=== PATIENT | female | born 1995 | race Hispanic/Latino ===

== ENCOUNTER 2021-03-31 09:17 | Observation (INO) | payer OTHER, MEDICAID ==
[~2021-03-31] VITALS: Ht 157.5 cm; Wt 94.3 kg
[2021-03-31 09:18] VITALS: BP 114/77
[2021-03-31 09:51] LABS: APPEARANCE,URINE Cloudy (CLEAR); BILIRUBIN,URINE Negative (NEGATIVE); COLOR,URINE Yellow (YELLOW); GLUCOSE, URINE (UA) Negative (NEGATIVE); KETONES,URINE Negative (NEGATIVE); LEUKOCYTE ESTERASE ,URINE Large (NEGATIVE); NITRATE,URINE Negative (NEGATIVE); OCCULT BLOOD,URINE Negative (NEGATIVE); PH,URINE 7.5 (5.0-8.0); PROTEIN,URINE Negative (NEGATIVE)
[2021-03-31 10:46] LABS: BACTERIA,URINE Moderate /HPF (None Seen); RBC,URINE 0-1 /HPF (0-1); SQUAMOUS EPITHELIAL CELL,UR Moderate /HPF (0-2)
== END 2021-03-31 10:52 | disposition home or self-care (01) ==
LOC: EDH 09:17 → LDH 09:18
PROVIDERS: ADMIT Obstetrics & Gynecology; ATTEND Obstetrics & Gynecology
DX: O36.8130 Decreased fetal movements, third trimester, not applicable or unspecified (principal); Z3A.30 30 weeks gestation of pregnancy; Z79.899 Other long term (current) drug therapy
CPT/HCPCS: 59025; 81001; 87088; G0378; G0379

== ENCOUNTER 2021-06-05 05:09 | Inpatient (IN) | payer OTHER, MEDICAID ==
[~2021-06-05] VITALS: Ht 157.5 cm; Wt 99.3 kg
[2021-06-05] MEDS ORDERED: OXYTOCIN-LR 20 UNITS/1000 ML 1,000 ML IV SCH (05:30)
[2021-06-05] MEDS ORDERED: MEPERIDINE-PF 50 MG/ML SYG IVP PRN (05:30)
[2021-06-05] MEDS ORDERED: LACTATED RINGERS 1000ML 1,000 ML IV PRN (05:30)
[2021-06-05] MEDS ORDERED: LACTATED RINGERS 500 ML 500 ML IV PRN (05:30)
[2021-06-05] MEDS ORDERED: ROPIVACAINE 0.2% 100ML VIAL 100 ML EP PRN (05:30)
[2021-06-05] MEDS ORDERED: PROMETHAZINE HCL 25 MG/ML 1ML AMPULE IM PRN (05:30)
[2021-06-05] MEDS ORDERED: EPHEDRINE SULFATE 50 MG/ML AMPULE IVP PRN (05:30)
[2021-06-05] MEDS ORDERED: NALOXONE HCL 0.4 MG/1 ML ML IV PRN (05:30)
[2021-06-05 06:00] LABS: APPEARANCE,URINE Clear (CLEAR); BILIRUBIN,URINE Negative (NEGATIVE); COLOR,URINE Yellow (YELLOW); GLUCOSE, URINE (UA) Negative (NEGATIVE); KETONES,URINE Negative (NEGATIVE); LEUKOCYTE ESTERASE ,URINE Moderate (NEGATIVE); NITRATE,URINE Negative (NEGATIVE); OCCULT BLOOD,URINE Negative (NEGATIVE); PH,URINE 6.5 (5.0-8.0); PROTEIN,URINE Negative (NEGATIVE)
[2021-06-05 06:09] LABS: BACTERIA,URINE Few /HPF (None Seen); MUCUS,URINE Rare LPF (None Seen); RBC,URINE 0-1 /HPF (0-1)
[2021-06-05 06:18] LABS: HEMATOCRIT 30.8 % (36-48); MEAN CORPUSCULAR HEMOGLOBIN 26.4 pg (27.0-33.0); MEAN CORPUSCULAR HGB CONC 32.5 g/dL (32.0-36.0); MEAN CORPUSCULAR VOLUME 81.3 fL (79-99); RED BLOOD CELL COUNT(AUTO) 3.79 MIL/uL (4.00-5.50); RED CELL DISTRIBUTION WIDTH 16.2 % (11.0-15.5); WHITE BLOOD COUNT (AUTO) 8.1 K/uL (4.8-10.8)
[2021-06-05 06:23] VITALS: BP 132/79
[2021-06-05] MEDS ORDERED: FERR-82 PO (06:29)
[2021-06-05] MEDS ORDERED: FENTANYL CITRATE PF 50 MCG/1 ML 2ML VIAL ONE (08:52)
[2021-06-05] MEDS ORDERED: LIDOCAINE 2%-EPI 1:200,000 20 ML VIAL IJ ONE (09:21)
[2021-06-05] MEDS ORDERED: MEASLES/MUMPS/RUBELLA VACCINE, LIVE 0.5 ML/VIAL SQ PRN (13:00)
[2021-06-05] MEDS ORDERED: BENZOCAINE/LANOLIN/ALOE VERA 60 ML AEROSOL TP PRN (13:00)
[2021-06-05] MEDS ORDERED: ACETAMINOPHEN WITH CODEINE 1 TAB TAB PO PRN (13:00)
[2021-06-05] MEDS ORDERED: WITCH HAZEL 1 PAD TP PRN (13:00)
[2021-06-05] MEDS ORDERED: LANOLIN 30GM OINTMENT TP PRN (13:00)
[2021-06-05] MEDS ORDERED: ACETAMINOPHEN 325 MG TAB PO PRN (13:00)
[2021-06-05] MEDS ORDERED: DIPH,PERTUSS(ACELL),TET VAC/PF 0.5 ML VIAL IM PRN (13:00)
[2021-06-05] MEDS ORDERED: FERRIC SUBSULFATE ML TP SCH (13:30)
[2021-06-05] MEDS: IBUPROFEN 600 MG TABLET PO PRN ×2 (14:17→19:59)
[2021-06-05 15:07] VITALS: BP 106/72
[2021-06-05 19:51] VITALS: BP 116/81
[2021-06-05] MEDS: DOCUSATE SODIUM 100 MG CAP PO SCH (21:00)
[2021-06-05 23:42] VITALS: BP 119/62
[2021-06-06 03:59] VITALS: BP 98/53
[2021-06-06 06:36] LABS: HEMATOCRIT 30.8 % (36-48); MEAN CORPUSCULAR HEMOGLOBIN 26.2 pg (27.0-33.0); MEAN CORPUSCULAR HGB CONC 31.5 g/dL (32.0-36.0); MEAN CORPUSCULAR VOLUME 83.2 fL (79-99); RED BLOOD CELL COUNT(AUTO) 3.7 MIL/uL (4.00-5.50); RED CELL DISTRIBUTION WIDTH 16.7 % (11.0-15.5); WHITE BLOOD COUNT (AUTO) 10.6 K/uL (4.8-10.8)
[2021-06-06 07:20] VITALS: BP 116/68
[2021-06-06 08:14] LABS: HEPATITIS Bs ANTIGEN SCREEN P Negative (Negative)
[2021-06-06] MEDS: DOCUSATE SODIUM 100 MG CAP PO SCH (09:08)
[2021-06-06 11:30] VITALS: BP 120/78
[2021-06-06] MEDS: IBUPROFEN 600 MG TABLET PO PRN (11:30)
[2021-06-06] MEDS ORDERED: IBUP-2071 PO (12:10)
[2021-06-06] MEDS ORDERED: FERR325T22 PO (12:11)
== END 2021-06-06 13:30 | disposition home or self-care (01) | DRG 807 ==
LOC: LDH 05:09 → WSH 15:05
PROVIDERS: ADMIT Obstetrics & Gynecology; ATTEND Obstetrics & Gynecology
PROC: 10E0XZZ Delivery of Products of Conception, External Approach (ICD-10-PCS; principal; 2021-06-05)
PROC: 3E033VJ Introduction of Other Hormone into Peripheral Vein, Percutaneous Approach (ICD-10-PCS; 2021-06-05)
PROC: 10907ZC Drainage of Amniotic Fluid, Therapeutic from Products of Conception, Via Natural or Artificial Opening (ICD-10-PCS; 2021-06-05)
PROC: 3E0234Z Introduction of Serum, Toxoid and Vaccine into Muscle, Percutaneous Approach (ICD-10-PCS; 2021-06-05)
PROC: 3E0R3BZ Introduction of Anesthetic Agent into Spinal Canal, Percutaneous Approach (ICD-10-PCS; 2021-06-05)
PROC: 00HU33Z Insertion of Infusion Device into Spinal Canal, Percutaneous Approach (ICD-10-PCS; 2021-06-05)
DX: O80 Encounter for full-term uncomplicated delivery (principal); Z37.0 Single live birth; Z3A.39 39 weeks gestation of pregnancy; Z23 Encounter for immunization
CPT/HCPCS: 36415; 81001; 85027; 86592; 86701; 86850; 86900; 86901; 87088; 87340; 87390; 90715; A4314; G0378; J2590; J2795; J3010; J3490; J7120